=== PATIENT | male | born 1990 | race Caucasian/White ===

== ENCOUNTER 2016-10-21 15:16 | Emergency (ER) | payer OTHER ==
[2016-10-21 16:11] VITALS: BP 155/96
--- NOTE | 2016-10-21 17:11 | UC ---
Lower Extremity/Ankle HPI - HPI Summary HPI Summary: Left heel pain for 2 weeks no injury - History of Current Complaint Chief Complaint: UCLowerExtremity Stated Complaint: ANKLE PAIN Time Seen by Provider: 10/21/16 16:54 Hx Obtained From: Patient Hx From Patient Unobtainable Due To: Dementia Onset/Duration: Sudden Onset, Lasting Weeks - 2, Still Present Severity Initially: Moderate Severity Currently: Moderate Pain Intensity: 6 Pain Scale Used: 0-10 Numeric Aggravating Factor(s): Standing, Ambulation Alleviating Factor(s): Rest, Ice Able to Bear Weight: Yes - Allergies/Home Medications Allergies/Adverse Reactions: Allergies Allergy/AdvReac Type Severity Reaction Status Date / Time Sulfamethoxazole Allergy Unknown Unknown Verified 11/16/12 23:16 w/Trimethoprim Reaction [From Bactrim] Details PMH/Surg Hx/FS Hx/Imm Hx Previously Healthy: No Psychological History: Bipolar Disorder Other History Of: Negative For: Anticoagulant Therapy - Surgical History Surgical History: None - Family History Known Family History: Positive: Cardiac Disease, Hypertension - Social History Occupation: Disabled Lives: With Family Alcohol Use: Occasionally Substance Use Type: None Smoking Status (MU): Never Smoked Tobacco Type: Cigarettes Amount Used/How Often: 0.5 PPD Have You Smoked in the Last Year: No When Did the Patient Quit Smoking/Using Tobacco: greater than 1 year ago - Immunization History Most Recent Influenza Vaccination: in the past Most Recent Tetanus Shot: up to date Most Recent Pneumonia Vaccination: never Review of Systems Constitutional: Negative Skin: Negative Eyes: Negative ENT: Negative Respiratory: Negative Cardiovascular: Negative Gastrointestinal: Negative Genitourinary: Negative Motor: Negative Neurovascular: Negative Musculoskeletal: Myalgia - left achellies area Neurological: Negative Psychological: Negative All Other Systems Reviewed And Are Negative: Yes Physical Exam Triage Information Reviewed: Yes Appearance: Well-Appearing, No Pain Distress, Well-Nourished Vital Signs: Initial Vital Signs Temp 98 F 10/21/16 16:08 Pulse 84 10/21/16 16:08 Resp 18 10/21/16 16:08 BP 155/96 10/21/16 16:08 Pulse Ox 99 10/21/16 16:08 Vital Signs Reviewed: Yes Eye Exam: Normal Eyes: Positive: Conjunctiva Clear ENT Exam: Normal ENT: Positive: Normal ENT inspection, Hearing grossly normal, TMs normal. Negative: Nasal congestion, Nasal drainage, Trismus, Muffled/hoarse voice Dental Exam: Normal Neck exam: Normal Neck: Positive: Supple, Nontender, No Lymphadenopathy Respiratory Exam: Normal Respiratory: Positive: Chest non-tender, Lungs clear, Normal breath sounds, No respiratory distress, No accessory muscle use Cardiovascular Exam: Normal Cardiovascular: Positive: RRR, No Murmur, Pulses Normal, Brisk Capillary Refill Musculoskeletal Exam: Normal Musculoskeletal: Positive: Strength Intact, ROM Intact, No Edema, Other: - Nolasco Squeeze test WNL and equal Bilaterally Neurological Exam: Normal Neurological: Positive: Alert, Muscle Tone Normal Psychological Exam: Normal Skin Exam: Normal Lower Extremity Course/Dx - Course Course Of Treatment: Leland, antinflammatories, shoe inserts, follow with physical therapy - Differential Dx/Diagnosis Differential Diagnosis/HQI/PQRI: Contusion, Fracture (Open), Sprain, Strain, Tendonitis Provider Diagnoses: (l) Achellies tendonitis, High blood pressure with out dx of hypertension Discharge - Discharge Plan Condition: Stable Disposition: HOME Prescriptions: Naproxen Sodium [Naproxen Sodium 500 MG TAB] 500 mg PO BID PRN #30 tab PRN Reason: Pain Patient Education Materials: Achilles Tendinitis (ED), DASH Eating Plan (ED), Hypertension (ED), RICE Therapy (ED) Referrals: Jl Newell MD [Primary Care Provider] - 2 Weeks
== END 2016-10-21 17:29 | disposition home or self-care (01) ==
LOC: UCEAST 15:16
DX: M76.62 Achilles tendinitis, left leg (principal); R03.0 Elevated blood-pressure reading, without diagnosis of hypertension; F31.9 Bipolar disorder, unspecified; Z88.3 Allergy status to other anti-infective agents
CPT/HCPCS: 99212; G0463

== ENCOUNTER 2017-04-04 13:56 | Emergency (ER) | payer MEDICARE, MEDICAID ==
[2017-04-04 14:22] VITALS: BP 153/72
[2017-04-04] MEDS ORDERED: Ibuprofen TAB* 600 MG PO ONE (15:11)
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
--- NOTE | 2017-04-04 15:38 | RAD ---
HISTORY: Left third toe injury COMPARISONS: None VIEWS: 3, Frontal, lateral, and oblique views of the left forefoot FINDINGS: BONE DENSITY: Normal. BONES: There is a nondisplaced fracture of the head of the proximal phalanx of the third digit with articular extension JOINTS: There is no arthropathy. ALIGNMENT: There is no dislocation. SOFT TISSUES: Unremarkable. OTHER FINDINGS: None. IMPRESSION: NONDISPLACED FRACTURE OF THE PROXIMAL PHALANX OF THE THIRD DIGIT
== END 2017-04-04 15:50 | disposition home or self-care (01) ==
LOC: UCEAST 13:56
DX: S92.515A Nondisplaced fracture of proximal phalanx of left lesser toe(s), initial encounter for closed fracture (principal); W22.8XXA Striking against or struck by other objects, initial encounter; Y93.9 Activity, unspecified; Y92.9 Unspecified place or not applicable; Z88.2 Allergy status to sulfonamides; Z87.891 Personal history of nicotine dependence
CPT/HCPCS: 99212; A9270-GY; G0463

== ENCOUNTER 2017-09-28 13:35 | Inpatient (IN) | payer MEDICARE, MEDICAID ==
[2017-09-28 14:57] LABS: ABS Basophils 0 10^3/ul (0-0.2); ABS Eosinophils 0 10^3/ul (0-0.6); ABS Lymphocytes 1.5 10^3/ul (1.0-4.8); ABS Monocytes 0.4 10^3/ul (0-0.8); ABS Neutrophils 5.8 10^3/ul (1.5-7.7); ABS Nucleated RBC 0 10^3/ul; Eosinophil % 0.2 % (0-6); Hematocrit 38 % (42-52); Lymphocyte % 18.9 % (25-47); Mean Corpuscular HGB Conc 34 g/dl (31-36); Mean Corpuscular Hemoglobin 30 pg (27-31); Mean Corpuscular Volume 88 fL (80-94); Mean Platelet Volume 10.3 um3 (7.4-10.4); Nucleated Red Blood Cells % 0; Platelet Count 245 10^3/ul (150-450); Red Blood Count 4.37 10^6/ul (4.0-5.4); Red Cell Distribution Width 13 % (10.5-15); White Blood Count 7.8 10^3/ul (3.5-10.8)
[2017-09-28 15:19] LABS: EGFR Non-African American 106.1 (>60)
[2017-09-28 16:14] LABS: Urine Appearance Clear; Urine Blood Negative (Negative); Urine Color Straw; Urine Ketones Negative (Negative); Urine Protein Negative (Negative); Urine Specific Gravity 1.012 (1.010-1.030); Urine Urobilinogen Negative (Negative)
[2017-09-28] MEDS ORDERED: Estradiol TAB(NF) 2 MG TAB PO ONE (22:19)
[2017-09-28] MEDS ORDERED: PTO: Estradiol TAB(NF) 2 MG TAB PO ONE (22:19)
[2017-09-28] MEDS ORDERED: Spironolactone TAB* 25 MG PO ONE (22:21)
[2017-09-28] MEDS ORDERED: Amoxicillin PO (*) 500 MG CAP PO SCH (23:00)
--- NOTE | 2017-09-28 23:17 | ED ---
Kaylen Cassidy Nilda, scribed for Rahul Bedolla MD on 09/28/17 at 1500 . Psychiatric Complaint - HPI Summary HPI Summary: This patient is a 27 year old M presenting to [facility] accompanied by family with a chief complaint of acute constant SI thoughts though no plan at this time. The patient rates the pain 0/10 in severity. Symptoms aggravated by recent stressors and alleviated by nothing. Patient denies drugs and ETOH today. Pt states OD two nights ago (2 pills of 5mg oxybutynin) and last week (18 pills of 5 mg oxybutynin). - History Of Current Complaint Chief Complaint: EDMentalHealth Time Seen by Provider: 09/28/17 14:35 Hx Obtained From: Patient Onset/Duration: Sudden Onset, Lasting Weeks, Still Present Timing: Constant Character: Depressed Aggravating Factor(s): Recent Stress Alleviating Factor(s): Nothing Related History: Positive For: Prior Psychiatric Issues Has Suicidal: Reports: Thoughts, Has Prior Attempt(s). Denies: With A Plan Ingestion History: Type/Name Of Drug - oxybutynin (18 5mg pills 1 weeks ago and 2 5 mg pills 2 days ago) - Allergies/Home Medications Allergies/Adverse Reactions: Allergies Allergy/AdvReac Type Severity Reaction Status Date / Time sulfamethoxazole Allergy Unknown Verified 09/28/17 13:44 [From Bactrim] Reaction Details trimethoprim [From Bactrim] Allergy Unknown Verified 09/28/17 13:44 Reaction Details Home Medications: Home Medications Estradiol TAB(NF) 2 mg PO BID 09/28/17 [History Confirmed 09/28/17] Spironolactone TAB* [Aldactone TAB*] 50 mg PO QPM 09/28/17 [History Confirmed ] Spironolactone TAB* [Aldactone TAB*] 100 mg PO QAM 09/28/17 [History Confirmed 09/28/17] PMH/Surg Hx/FS Hx/Imm Hx Endocrine/Hematology History: Denies: Hx Anticoagulant Therapy, Hx Diabetes, Hx Thyroid Disease Cardiovascular History: Denies: Hx Hypertension Respiratory History: Denies: Hx Asthma, Hx Chronic Obstructive Pulmonary Disease (COPD) GI History: Denies: Hx Ulcer Neurological History: Reports: Hx Developmental Delay, Hx Headaches, Hx Seizures - as a child Psychiatric History: Reports: Hx Attention Deficit Hyperactivity Disorder, Hx Depression, Hx Bipolar Disorder, Hx of Violent Episodes Against Others - Immunization History Date of Tetanus Vaccine: up to date Date of Influenza Vaccine: none Infectious Disease History: No Infectious Disease History: Denies: Hx Clostridium Difficile, Hx Hepatitis, Hx Human Immunodeficiency Virus (HIV), Hx of Known/Suspected MRSA, Hx Shingles, Hx Tuberculosis, Hx Known/ Suspected VRE, Hx Known/Suspected VRSA, History Other Infectious Disease, Traveled Outside the [place] in Last 30 Days - Family History Known Family History: Positive: Cardiac Disease, Hypertension, Other - thyroid disease - Social History Alcohol Use: Occasionally Substance Use Type: Reports: None Smoking Status (MU): Never Smoked Tobacco Type: Cigarettes Amount Used/How Often: 0.5 PPD Have You Smoked in the Last Year: No Review of Systems Negative: Shortness Of Breath Psychological: Other - SI thoughts, intentional overdose (2 days ago and 1 week ago) Positive: Depressed All Other Systems Reviewed And Are Negative: Yes Physical Exam - Summary Physical Exam Summary: General: well-appearing, no pain distress Skin: warm, color reflects adequate perfusion, dry Head: normal Eyes: EOMI, OMAR ENT: normal Neck: supple, nontender Respiratory: CTA, breath sounds present Cardiovascular: RRR Abdomen: soft, nontender Bowel: present Musculoskeletal: normal, strength/ROM intact Neurological: normal, sensory/motor intact, A&O x3 Psychological: affect/mood appropriate Triage Information Reviewed: Yes Vital Signs On Initial Exam: Initial Vitals Temp Pulse Resp BP Pulse Ox 96.7 F 95 16 144/94 96 09/28/17 13:41 09/28/17 13:41 09/28/17 13:41 09/28/17 13:41 09/28/17 13:41 Vital Signs Reviewed: Yes Diagnostics - Vital Signs Vital Signs Temp Pulse Resp BP Pulse Ox 09/28/17 13:41 96.7 F 95 16 144/94 96 - Laboratory Lab Results: Lab Results 09/28/17 09/28/17 09/28/17 Range/Units 14:47 14:47 15:54 WBC 7.8 (3.5-10.8) 10^3/ul RBC 4.37 (4.0-5.4) 10^6/ul Hgb 13.0 L (14.0-18.0) g/dl Hct 38 L (42-52) % MCV 88 (80-94) fL MCH 30 (27-31) pg MCHC 34 (31-36) g/dl RDW 13 (10.5-15) % Plt Count 245 (150-450) 10^3/ul MPV 10.3 (7.4-10.4) um3 Neut % (Auto) 75.0 (38-83) % Lymph % (Auto) 18.9 L (25-47) % Wilcox % (Auto) 5.3 (0-7) % Eos % (Auto) 0.2 (0-6) % Baso % (Auto) 0.6 (0-2) % Absolute Neuts (auto) 5.8 (1.5-7.7) 10^3/ul Absolute Lymphs (auto) 1.5 (1.0-4.8) 10^3/ul Absolute Monos (auto) 0.4 (0-0.8) 10^3/ul Absolute Eos (auto) 0 (0-0.6) 10^3/ul Absolute Basos (auto) 0 (0-0.2) 10^3/ul Absolute Nucleated RBC 0 10^3/ul Nucleated RBC % 0 Sodium 133 L (139-145) mmol/L Potassium 4.2 (3.5-5.0) mmol/L Chloride 100 L (101-111) mmol/L Carbon Dioxide 26 (22-32) mmol/L Anion Gap 7 (2-11) mmol/L BUN 18 (6-24) mg/dL Creatinine 0.87 (0.67-1.17) mg/dL Est GFR ( Amer) 136.4 (>60) Est GFR (Non-Af Amer) 106.1 (>60) BUN/Creatinine Ratio 20.7 H (8-20) Glucose 91 (70-100) mg/dL Calcium 9.5 (8.6-10.3) mg/dL Total Bilirubin 0.30 (0.2-1.0) mg/dL AST 17 (13-39) U/L ALT 16 (7-52) U/L Alkaline Phosphatase 46 (34-104) U/L Total Protein 7.9 (6.4-8.9) g/dL Albumin 4.5 (3.2-5.2) g/dL Globulin 3.4 (2-4) g/dL Albumin/Globulin Ratio 1.3 (1-3) TSH 0.95 (0.34-5.60) mcIU/mL Urine Color Urine Appearance Urine pH (5-9) Ur Specific Evergreen (1.010-1.030) Urine Protein (Negative) Urine Ketones (Negative) Urine Blood (Negative) Urine Nitrate (Negative) Urine Bilirubin (Negative) Urine Urobilinogen (Negative) Ur Leukocyte Esterase (Negative) Urine Glucose (Negative) Salicylates < 2.50 (<30) mg/dL Urine Opiates Screen None detected (None Detect) Acetaminophen < 15 mcg/mL Ur Barbiturates Screen None detected (None Detect) Ur Phencyclidine Scrn None detected (None Detect) Ur Amphetamines Screen None detected (None Detect) U Benzodiazepines Scrn None detected (None Detect) Urine Cocaine Screen None detected (None Detect) U Cannabinoids Screen None detected (None Detect) Serum Alcohol < 10 (<10) mg/dL 09/28/17 Range/Units 15:55 WBC (3.5-10.8) 10^3/ul RBC (4.0-5.4) 10^6/ul Hgb (14.0-18.0) g/dl Hct (42-52) % MCV (80-94) fL MCH (27-31) pg MCHC (31-36) g/dl RDW (10.5-15) % Plt Count (150-450) 10^3/ul MPV (7.4-10.4) um3 Neut % (Auto) (38-83) % Lymph % (Auto) (25-47) % Wilcox % (Auto) (0-7) % Eos % (Auto) (0-6) % Baso % (Auto) (0-2) % Absolute Neuts (auto) (1.5-7.7) 10^3/ul Absolute Lymphs (auto) (1.0-4.8) 10^3/ul Absolute Monos (auto) (0-0.8) 10^3/ul Absolute Eos (auto) (0-0.6) 10^3/ul Absolute Basos (auto) (0-0.2) 10^3/ul Absolute Nucleated RBC 10^3/ul Nucleated RBC % Sodium (139-145) mmol/L Potassium (3.5-5.0) mmol/L Chloride (101-111) mmol/L Carbon Dioxide (22-32) mmol/L Anion Gap (2-11) mmol/L BUN (6-24) mg/dL Creatinine (0.67-1.17) mg/dL Est GFR ( Amer) (>60) Est GFR (Non-Af Amer) (>60) BUN/Creatinine Ratio (8-20) Glucose (70-100) mg/dL Calcium (8.6-10.3) mg/dL Total Bilirubin (0.2-1.0) mg/dL AST (13-39) U/L ALT (7-52) U/L Alkaline Phosphatase (34-104) U/L Total Protein (6.4-8.9) g/dL Albumin (3.2-5.2) g/dL Globulin (2-4) g/dL Albumin/Globulin Ratio (1-3) TSH (0.34-5.60) mcIU/mL Urine Color Straw Urine Appearance Clear Urine pH 6.0 (5-9) Ur Specific Evergreen 1.012 (1.010-1.030) Urine Protein Negative (Negative) Urine Ketones Negative (Negative) Urine Blood Negative (Negative) Urine Nitrate Negative (Negative) Urine Bilirubin Negative (Negative) Urine Urobilinogen Negative (Negative) Ur Leukocyte Esterase Negative (Negative) Urine Glucose Negative (Negative) Salicylates (<30) mg/dL Urine Opiates Screen (None Detect) Acetaminophen mcg/mL Ur Barbiturates Screen (None Detect) Ur Phencyclidine Scrn (None Detect) Ur Amphetamines Screen (None Detect) U Benzodiazepines Scrn (None Detect) Urine Cocaine Screen (None Detect) U Cannabinoids Screen (None Detect) Serum Alcohol (<10) mg/dL Result Diagrams: 09/28/17 14:47 09/28/17 14:47 Lab Statement: Any lab studies that have been ordered have been reviewed, and results considered in the medical decision making process. Course/Dx - Course Course Of Treatment: 1550 Pt is medically cleared for [facility]HE. Assessment/Plan: Medications reviewed. BP noted and advised to follow up with PCP. - Differential Dx/Clinical Impression Provider Diagnosis: Elevated BP without diagnosis of hypertension, Depression, Mental health problem - Physician Notifications Discussed Care Of Patient With: Khanh Villalba - Psych Time Discussed With Above Provider: 22:36 Instructed by Provider To: Admit As Inpatient Discharge - Sign-Out/Discharge Documenting (check all that apply): Discharge/Admit/Transfer - Discharge Plan Condition: Stable [facility]position[place] [facility] [place] Disposition Comment: pending dispo, awaiting [facility]. Referrals: Gurmeet Chapman NP [Primary Care Provider] - Additional Instructions: Your blood pressure was elevated during todays visit; please follow up with your primary care provider within a week for further evaluation. - Billing Disposition and Condition Condition: STABLE Disposition: [facility] [place] The documentation as recorded by the Kaylen ferrara Nilda accurately reflects the service I personally performed and the decisions made by me, Rahul Bedolla MD.
[2017-09-28] MEDS ORDERED: SPIRONOLACTONE PO ONE (23:45)
[2017-09-28] MEDS: AMOXICILLIN 500 MG PO SCH (23:59)
[2017-09-29] MEDS ORDERED: Acetaminophen TAB* 325 MG PO PRN (05:42)
[2017-09-29] MEDS ORDERED: Al Hydrox/Mg Hydrox/Simet LIQ* 30 ML UDC PO PRN (05:42)
[2017-09-29] MEDS: Spironolactone TAB* 25 MG PO SCH ×2 (08:48→20:32)
[2017-09-29] MEDS: PTO: Estradiol TAB(NF) 2 MG TAB PO SCH ×2 (08:53→21:03)
[2017-09-29] MEDS: AMOXICILLIN 500 MG PO SCH (08:54)
[2017-09-29] MEDS: Vitamin THERAPEUTIC TAB PO SCH (09:00)
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
[2017-09-30] MEDS: Spironolactone TAB* 25 MG PO SCH ×2 (09:21→21:07)
[2017-09-30] MEDS: PTO: Estradiol TAB(NF) 2 MG TAB PO SCH ×2 (09:22→21:05)
[2017-09-30] MEDS: Vitamin THERAPEUTIC TAB PO SCH (09:22)
[2017-09-30] MEDS ORDERED: Aripiprazole Maintena (NF) 300 MG SYRINGE IM SCH (13:00)
--- NOTE | 2017-09-30 14:24 | PN ---
Subjective - Subjective Date of Service: 09/30/17 Service Type: 13004 Hosp care 15 min low complexity Subjective: Deirdre slept much of the day. I have ordered Abilify Maintena 300 mg for her to continue outpatient. She has reportedly done better on a mood stabilizer/ antipsychotic than without. She is agreeable to the injection and is apparently happy to take it today. Objective - Appearance Appearance: Obese Dysmorphic Features: No Hygiene: Normal Grooming: Disheveled - Behavior Psychomotor Activities: Normal Exhibits Abnormal Movement: No - Attitude and Relatedness Attitude and Relatedness: Cooperative - Mood Patient's Decription of Mood: "Okay" - Affect Affect Consistent with: Euthymia - Thought Process Thought Content: No Passive Wish, No Suicidal Planning, No Homicidal Ideation, No Paranoid Ideation - Sensorium Type of Hallucinations: Visual: No, Auditory: No, Command: No - Level of Consciousness Level of Consciousness: Lethargic Orientation: Yes Intact, Yes Orientated to Time, Yes Orientated to Place, Yes Orientated to Person - Impulse Control Impulse Control: Impaired - Insight and Judgement Insight and Judgement: Impaired - Additional Observations Comments: Deirdre is feeling lethargic. Although she participated in morning groups, she napped for some of the afternoon. Assessment - Assessment Merits Inpatient Hospitalization: For Immediate Safety Clinical Impression: Deirdre is a 27-year-old male transitioning to female who chronically feels "suicidal". She has suffered many traumas and has not processed them efficiently. In addition there is a mood component to her presentation. Plan - Plan Treatment Plan: Name: RHETT KHAN Birthdate: 1990 [id number] Continued Medication Management: Different Medication Medications: Current Medications Acetaminophen (Tylenol Tab*) 650 mg PO Q4H PRN PRN Reason: PAIN or TEMP > 101 F Al Hydrox/Mg Hydrox/Simethicone (Maalox Plus*) 30 ml PO Q4H PRN PRN Reason: INDIGESTION Aripiprazole (Abilify Maintena (Nf)) 300 mg IM Q28D [facility] Estradiol (Estradiol Tab(Nf)) 2 mg PO BID [facility] Last Admin: 09/30/17 09:22 Dose: 2 mg Multivitamins (Theragran Tab*) 1 tab PO DAILY [facility] Last Admin: 05/09/18 09:22 Dose: 1 tab Spironolactone (Aldactone Tab*) 50 mg PO BEDTIME [facility] Last Admin: 09/29/17 20:32 Dose: 50 mg Spironolactone (Aldactone Tab*) 100 mg PO DAILY [facility] Last Admin: 09/30/17 09:21 Dose: 100 mg - Discharge Plan Discharge Plan: Outpatient Follow Up Outpatient Program: [facility] Additional Comments: We will inject Deirdre with Abilify Maintena 300 mg today and plan to discharge her tomorrow.
[2017-10-01 08:11] VITALS: BP 125/76
[2017-10-01] MEDS: PTO: Estradiol TAB(NF) 2 MG TAB PO SCH (09:45)
[2017-10-01] MEDS: Spironolactone TAB* 25 MG PO SCH (09:45)
[2017-10-01] MEDS: Vitamin THERAPEUTIC TAB PO SCH (09:45)
--- NOTE | 2017-10-01 11:30 | PN ---
MHU: Group Therapy Note - Service Type Service Type: 89019 Group Psychotherapy - Cognitive Behavioral Group Therapy ( CBT):Patient was attentive and participatory in CBT programming this morning, and remained in good behavioral control. Patient expressed positive insights regarding relevant treatment interventions and goals.
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
== END 2017-10-01 16:40 | disposition home or self-care (01) | DRG 881 ==
LOC: ED 13:35 → BSU 09-29 00:35
PROVIDERS: ADMIT Psychiatry & Neurology Psychiatry; ATTEND Psychiatry & Neurology Psychiatry
PROC: GZHZZZZ Group Psychotherapy (ICD-10-PCS; principal; 2017-10-01)
DX: F32.9 Major depressive disorder, single episode, unspecified (principal); F90.9 Attention-deficit hyperactivity disorder, unspecified type; Z62.810 Personal history of physical and sexual abuse in childhood; J45.909 Unspecified asthma, uncomplicated; R62.50 Unspecified lack of expected normal physiological development in childhood; F64.9 Gender identity disorder, unspecified; T44.3X2A Poisoning by other parasympatholytics [anticholinergics and antimuscarinics] and spasmolytics, intentional self-harm, initial encounter; Y92.009 Unspecified place in unspecified non-institutional (private) residence as the place of occurrence of the external cause; Z88.3 Allergy status to other anti-infective agents; Z82.49 Family history of ischemic heart disease and other diseases of the circulatory system; Z72.89 Other problems related to lifestyle
CPT/HCPCS: 36415; 80053; 80061; 80307; 80320; 80329; 81003; 83036; 84443; 85025; 90853; 99222; 99231; 99238; 99285; A9270-GY; G0480

== ENCOUNTER 2017-11-04 16:41 | Emergency (ER) | payer MEDICARE, MEDICAID ==
[2017-11-04 17:26] LABS: ABS Basophils 0.1 10^3/ul (0-0.2); ABS Eosinophils 0 10^3/ul (0-0.6); ABS Lymphocytes 1.5 10^3/ul (1.0-4.8); ABS Monocytes 0.4 10^3/ul (0-0.8); ABS Neutrophils 9.3 10^3/ul (1.5-7.7); ABS Nucleated RBC 0 10^3/ul; Eosinophil % 0.1 % (0-6); Hematocrit 38 % (42-52); Hemoglobin 12.6 g/dl (14.0-18.0); Lymphocyte % 12.9 % (25-47); Mean Corpuscular HGB Conc 33 g/dl (31-36); Mean Corpuscular Hemoglobin 29 pg (27-31); Mean Corpuscular Volume 89 fL (80-94); Nucleated Red Blood Cells % 0; Platelet Count 225 10^3/ul (150-450); Red Cell Distribution Width 14 % (10.5-15); White Blood Count 11.3 10^3/ul (3.5-10.8)
[2017-11-04 17:30] LABS: Urine Appearance Clear; Urine Blood Negative (Negative); Urine Color Yellow; Urine Ketones Negative (Negative); Urine Protein Negative (Negative); Urine Specific Gravity 1.025 (1.010-1.030); Urine Urobilinogen Negative (Negative)
--- NOTE | 2017-11-04 19:17 | ED ---
Jeanna Cassidy Tenzin, scribed for Rahul Bedolla MD on 11/04/17 at 1751 . Psychiatric Complaint - HPI Summary HPI Summary: Pt is a 27 years old male presenting to the ED with complaints of depression and SI. Pt is currently taking transgender medication and is also on lithium. Pt denies fever, chills, CP or SOB. No Aggravating and alleviating factors were noted. - History Of Current Complaint Chief Complaint: EDMentalHealth Time Seen by Provider: 11/04/17 16:56 Hx Obtained From: Patient Character: Depressed Aggravating Factor(s): Nothing Alleviating Factor(s): Nothing - Allergies/Home Medications Allergies/Adverse Reactions: Allergies Allergy/AdvReac Type Severity Reaction Status Date / Time sulfamethoxazole Allergy Unknown Verified 09/28/17 13:44 [From Bactrim] Reaction Details trimethoprim [From Bactrim] Allergy Unknown Verified 09/28/17 13:44 Reaction Details Home Medications: Home Medications Acetaminophen TAB* [Tylenol TAB*] 650 mg PO Q4H PRN 11/04/17 [History Confirmed 11/04/17] Estradiol TAB(NF) 2 mg PO BID 11/04/17 [History Confirmed 11/04/17] [place] Carbonate ER TAB* 600 mg PO BEDTIME 11/04/17 [History Confirmed 11/04/17 ] PMH/Surg Hx/FS Hx/Imm Hx Endocrine/Hematology History: Reports: Hx Anemia Denies: Hx Anticoagulant Therapy, Hx Diabetes, Hx Thyroid Disease Cardiovascular History: Reports: Hx Hypertension Respiratory History: Reports: Hx Asthma - Exercise induced Denies: Hx Chronic Obstructive Pulmonary Disease (COPD) GI History: Reports: Other GI Disorders - Pt reports being tested for constipation 2 months ago Denies: Hx Ulcer Musculoskeletal History: Reports: Hx Arthritis Sensory History: Reports: Hx Contacts or Glasses Denies: Hx Hearing Aid Opthamlomology History: Reports: Hx Contacts or Glasses Neurological History: Reports: Hx Developmental Delay, Hx Headaches, Hx Seizures - as a child, Other Neuro Impairments/Disorders - 11 concussions Psychiatric History: Reports: Hx Attention Deficit Hyperactivity Disorder, Hx Depression, Hx Inpatient Treatment, Hx Community Mental Health Tx, Hx Bipolar Disorder, Hx Suicide Attempt, Hx of Violent Episodes Against Others - Immunization History Date of Tetanus Vaccine: up to date Date of Influenza Vaccine: none Infectious Disease History: No Infectious Disease History: Denies: Hx Clostridium Difficile, Hx Hepatitis, Hx Human Immunodeficiency Virus (HIV), Hx of Known/Suspected MRSA, Hx Shingles, Hx Tuberculosis, Hx Known/ Suspected VRE, Hx Known/Suspected VRSA, History Other Infectious Disease, Traveled Outside the [place] in Last 30 Days - Family History Known Family History: Positive: Cardiac Disease, Hypertension, Other - thyroid disease - Social History Alcohol Use: Occasionally Substance Use Type: Reports: None Smoking Status (MU): Former Smoker Type: Cigarettes Amount Used/How Often: 0.5 PPD Have You Smoked in the Last Year: No Review of Systems Negative: Fever, Chills Negative: Chest Pain Negative: Shortness Of Breath All Other Systems Reviewed And Are Negative: Yes Physical Exam - Summary Physical Exam Summary: General: well-appearing, no pain distress Skin: warm, color reflects adequate perfusion, dry Head: normal Eyes: EOMI, OMAR ENT: normal Neck: supple, nontender Respiratory: CTA, breath sounds present Cardiovascular: RRR Abdomen: soft, nontender Bowel: present Musculoskeletal: normal, strength/ROM intact Neurological: sensory/motor intact, A&O x3 Psychological: affect/mood appropriate Triage Information Reviewed: Yes Vital Signs On Initial Exam: Initial Vitals Temp Pulse Resp BP Pulse Ox 99.5 F 70 18 151/97 99 11/04/17 16:47 11/04/17 16:47 11/04/17 16:47 11/04/17 16:47 11/04/17 16:47 Vital Signs Reviewed: Yes Diagnostics - Vital Signs Vital Signs Temp Pulse Resp BP Pulse Ox 11/04/17 16:47 99.5 F 70 18 151/97 99 - Laboratory Lab Results: Lab Results 11/04/17 11/04/17 Range/Units 17:12 17:19 WBC 11.3 H (3.5-10.8) 10^3/ul RBC 4.30 (4.00-5.40) 10^6/ul Hgb 12.6 L (14.0-18.0) g/dl Hct 38 L (42-52) % MCV 89 (80-94) fL MCH 29 (27-31) pg MCHC 33 (31-36) g/dl RDW 14 (10.5-15) % Plt Count 225 (150-450) 10^3/ul MPV 10.0 (7.4-10.4) um3 Neut % (Auto) 82.5 (38-83) % Lymph % (Auto) 12.9 L (25-47) % [place] % (Auto) 3.8 (0-7) % Eos % (Auto) 0.1 (0-6) % Baso % (Auto) 0.7 (0-2) % Absolute Neuts (auto) 9.3 H (1.5-7.7) 10^3/ul Absolute Lymphs (auto) 1.5 (1.0-4.8) 10^3/ul Absolute Monos (auto) 0.4 (0-0.8) 10^3/ul Absolute Eos (auto) 0 (0-0.6) 10^3/ul Absolute Basos (auto) 0.1 (0-0.2) 10^3/ul Absolute Nucleated RBC 0 10^3/ul Nucleated RBC % 0 Urine Color Yellow Urine Appearance Clear Urine pH 5.0 (5-9) Ur Specific [place] 1.025 (1.010-1.030) Urine Protein Negative (Negative) Urine Ketones Negative (Negative) Urine Blood Negative (Negative) Urine Nitrate Negative (Negative) Urine Bilirubin Negative (Negative) Urine Urobilinogen Negative (Negative) Ur Leukocyte Esterase Negative (Negative) Urine Glucose Negative (Negative) Urine Ascorbic Acid * A (Negative) Result Diagrams: 11/04/17 17:12 11/04/17 17:12 Lab Statement: Any lab studies that have been ordered have been reviewed, and results considered in the medical decision making process. Course/Dx - Course Course Of Treatment: MHE AND DISPOSITION PENDING AT SHIFT CHANGE - Differential Dx/Clinical Impression Provider Diagnosis: Mental health problem Discharge - Sign-Out/Discharge Documenting (check all that apply): Sign-Out Patient Signing out patient TO: Joshua Mendez - awaiting MHE. - Discharge Plan Condition: Stable [facility] [place] Gurmeet Chapman NP [Primary Care Provider] - - Billing Disposition and Condition Condition: STABLE Disposition: Psychiatric Facility [facility] [place] The documentation as recorded by the Jeanna ferrara Tenzin accurately reflects the service I personally performed and the decisions made by , Rahul Bedolla MD.
[2017-11-04 21:03] VITALS: BP 150/85
--- NOTE | 2017-11-04 21:09 | ED ---
Tiki Cassidy Elizabeth, hilda for Joshua Mendez MD on 11/04/17 at 2043 . Progress - Progress Note Progress Note: The patient was signed out from Dr. Bedolla to Dr. Mendez upon shift change pending mental health evaluation. At 20:36 the mental health evaluation was relayed to Dr. Mendez. Dr. Villalba recommended discharging the patient into the care of his grandmother, who can keep him safe until his appointment with [facility] on 11/09/17. - Consult/PCP Time Called: 19:00 Course/Dx - Course Course Of Treatment: At 20:36 the mental health evaluation was relayed to Dr. Mendez. Dr. Villalba recommended discharging the patient into the care of his grandmother, who can keep him safe until his appointment with [facility] on 11/09/17. Patient will be discharged home with diagnosis of depression. - Diagnoses Provider Diagnoses: Depression - Provider Notifications Discussed Care Of Patient With: Khanh Villalba Time Discussed With Above Provider: 20:36 Instructed by Provider To: Other - discharge patient home in care of his grandmother Discharge - Sign-Out/Discharge Documenting (check all that apply): Discharge/Admit/Transfer - Discharge Plan Condition: Stable Disposition: HOME Patient Education Materials: Depression (ED), Suicide Prevention for Adults (ED ) Referrals: Gurmeet Chapman, MARINA PORTER [Primary Care Provider] - [facility] [Outside] - 5 Days (Patient has an appointment on 11/09/17.) The documentation as recorded by the Tiki ferrara Elizabeth accurately reflects the service I personally performed and the decisions made by Andrea hamilton Abdul, MD.
== END 2017-11-04 21:28 | disposition home or self-care (01) ==
LOC: ED 16:41
DX: Z88.5 Allergy status to narcotic agent (principal); Z87.891 Personal history of nicotine dependence; F32.9 Major depressive disorder, single episode, unspecified
CPT/HCPCS: 36415; 80053; 80178; 80307; 80320; 80329; 81003; 84443; 85025; 86703; 99284; G0480

== ENCOUNTER 2017-12-16 22:16 | Emergency (ER) | payer MEDICARE, MEDICAID ==
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
[2017-12-16 23:32] LABS: ABS Basophils 0 10^3/ul (0-0.2); ABS Eosinophils 0 10^3/ul (0-0.6); ABS Lymphocytes 1.7 10^3/ul (1.0-4.8); ABS Monocytes 0.5 10^3/ul (0-0.8); ABS Neutrophils 5.2 10^3/ul (1.5-7.7); ABS Nucleated RBC 0 10^3/ul; Eosinophil % 0.4 % (0-6); Hematocrit 36 % (42-52); Hemoglobin 12.4 g/dl (14.0-18.0); Lymphocyte % 23.2 % (25-47); Mean Corpuscular HGB Conc 34 g/dl (31-36); Mean Corpuscular Hemoglobin 30 pg (27-31); Mean Corpuscular Volume 87 fL (80-94); Mean Platelet Volume 9.9 um3 (7.4-10.4); Nucleated Red Blood Cells % 0; Platelet Count 227 10^3/ul (150-450); Red Blood Count 4.18 10^6/ul (4.00-5.40); Red Cell Distribution Width 13 % (10.5-15); White Blood Count 7.5 10^3/ul (3.5-10.8)
[2017-12-16 23:48] LABS: Urine Appearance Cloudy; Urine Blood Negative (Negative); Urine Color Yellow; Urine Ketones Trace (Negative); Urine Protein 1+(30 mg/dL) (Negative); Urine Red Blood Cell Trace(0-2/hpf) (Absent); Urine Specific Gravity 1.028 (1.010-1.030); Urine Urobilinogen Negative (Negative); Urine White Blood Cell Trace(0-5/hpf) (Absent)
[2017-12-16 23:51] LABS: EGFR Non-African American 110.5 (>60)
--- NOTE | 2017-12-17 07:19 | ED ---
Progress - Progress Note Progress Note: Pt signed out from Dr. WEBER pending MHE. This is scribe Ed Sherine documenting for attending Johnathon Neri MD. Course/Dx - Course Course Of Treatment: A 27-year-old M presents to the ED with a CC of depression. (+) SIB. (-) med compliance. PMHx mental health admissions, suicide attempt. - Diagnoses Provider Diagnoses: Depression Discharge - Discharge Plan Referrals: Gurmeet Chapman NP [Primary Care Provider] -
--- NOTE | 2017-12-17 08:45 | PN ---
ED Flex Patient Progress Note Date of Service: 12/16/17 Subjective: This is a 27 year-old M who is pending admission to [facility] Unit / transfer to another psychiatric facility / discharge to home / or being observed secondary to SI. Pt. examined in room 6 at 0845. He is resting comfortably. No complaints. Objective: Vitals: Most recent vital signs documented below. General NAD. Laboratory: Current laboratory results documented below. Assessment: Pending MHE. Plan: Pending psychiatric or medical consultation to observe / transfer / admit / discharge will follow up daily . Vital Signs Temp Pulse Resp BP Pulse Ox 97.9 F 90 18 120/90 98 12/17/17 08:24 12/17/17 08:24 12/17/17 08:24 12/17/17 08:24 12/17/17 08:24 Lab Results - Entire Visit 12/16/17 12/16/17 12/16/17 23:33 23:33 23:23 WBC RBC Hgb Hct MCV MCH MCHC RDW Plt Count MPV Neut % (Auto) Lymph % (Auto) [place] % (Auto) Eos % (Auto) Baso % (Auto) Absolute Neuts (auto) Absolute Lymphs (auto) Absolute Monos (auto) Absolute Eos (auto) Absolute Basos (auto) Absolute Nucleated RBC Nucleated RBC % Sodium 138 Potassium 3.7 Chloride 106 Carbon Dioxide 25 Anion Gap 7 BUN 18 Creatinine 0.84 Est GFR ( Amer) 133.6 Est GFR (Non-Af Amer) 110.5 BUN/Creatinine Ratio 21.4 H Glucose 97 Calcium 9.0 Total Bilirubin 0.20 AST 15 ALT 19 Alkaline Phosphatase 53 Total Protein 7.3 Albumin 4.2 Globulin 3.1 Albumin/Globulin Ratio 1.4 TSH 0.98 Urine Color Yellow Urine Appearance Cloudy Urine pH 6.0 Ur Specific [place] 1.028 Urine Protein 1+(30 mg/dl) A Urine Ketones Trace A Urine Blood Negative Urine Nitrate Negative Urine Bilirubin Negative Urine Urobilinogen Negative Ur Leukocyte Esterase Negative Urine WBC (Auto) Trace(0-5/hpf) Urine RBC (Auto) Trace(0-2/hpf) Ur Squamous Epith Cells Present A Urine Bacteria Absent Hyaline Casts Present A Urine Glucose Negative Salicylates < 2.50 Urine Opiates Screen None detected Acetaminophen < 15 Ur Barbiturates Screen None detected Ur Phencyclidine Scrn None detected Ur Amphetamines Screen None detected U Benzodiazepines Scrn None detected Urine Cocaine Screen None detected U Cannabinoids Screen None detected Serum Alcohol < 10 12/16/17 23:23 WBC 7.5 RBC 4.18 Hgb 12.4 L Hct 36 L MCV 87 MCH 30 MCHC 34 RDW 13 Plt Count 227 MPV 9.9 Neut % (Auto) 69.9 Lymph % (Auto) 23.2 L [place] % (Auto) 6.1 Eos % (Auto) 0.4 Baso % (Auto) 0.4 Absolute Neuts (auto) 5.2 Absolute Lymphs (auto) 1.7 Absolute Monos (auto) 0.5 Absolute Eos (auto) 0 Absolute Basos (auto) 0 Absolute Nucleated RBC 0 Nucleated RBC % 0 Sodium Potassium Chloride Carbon Dioxide Anion Gap BUN Creatinine Est GFR ( Amer) Est GFR (Non-Af Amer) BUN/Creatinine Ratio Glucose Calcium Total Bilirubin AST ALT Alkaline Phosphatase Total Protein Albumin Globulin Albumin/Globulin Ratio TSH Urine Color Urine Appearance Urine pH Ur Specific [place] Urine Protein Urine Ketones Urine Blood Urine Nitrate Urine Bilirubin Urine Urobilinogen Ur Leukocyte Esterase Urine WBC (Auto) Urine RBC (Auto) Ur Squamous Epith Cells Urine Bacteria Hyaline Casts Urine Glucose Salicylates Urine Opiates Screen Acetaminophen Ur Barbiturates Screen Ur Phencyclidine Scrn Ur Amphetamines Screen U Benzodiazepines Scrn Urine Cocaine Screen U Cannabinoids Screen Serum Alcohol
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
[2017-12-17 23:00] VITALS: BP 115/72
--- NOTE | 2017-12-19 06:53 | PN ---
Progress Note - Progress Note Date of Service: 12/19/17 Note: Urine culture grew enterococcus faecalis 1 through 10,000. not significant culture so will not treat.
== END 2017-12-18 00:15 | disposition home or self-care (01) ==
LOC: ED 22:16
DX: F32.9 Major depressive disorder, single episode, unspecified (principal); Z87.891 Personal history of nicotine dependence
CPT/HCPCS: 36415; 80053; 80307; 80320; 80329; 81003; 81015; 84443; 85025; 87077; 87086; 87186; 93005; 99285; G0480

== ENCOUNTER 2018-02-03 14:04 | Emergency (ER) | payer MEDICARE, MEDICAID ==
[2018-02-03 15:35] LABS: ABS Basophils 0 10^3/ul (0-0.2); ABS Eosinophils 0.1 10^3/ul (0-0.6); ABS Lymphocytes 1.2 10^3/ul (1.0-4.8); ABS Monocytes 0.4 10^3/ul (0-0.8); ABS Neutrophils 6.7 10^3/ul (1.5-7.7); ABS Nucleated RBC 0 10^3/ul; Eosinophil % 0.7 % (0-6); Hematocrit 37 % (42-52); Hemoglobin 12.4 g/dl (14.0-18.0); Lymphocyte % 14.3 % (25-47); Mean Corpuscular HGB Conc 34 g/dl (31-36); Mean Corpuscular Hemoglobin 30 pg (27-31); Mean Corpuscular Volume 87 fL (80-94); Mean Platelet Volume 10.1 um3 (7.4-10.4); Nucleated Red Blood Cells % 0; Platelet Count 241 10^3/ul (150-450); Red Blood Count 4.18 10^6/ul (4.00-5.40); Red Cell Distribution Width 13 % (10.5-15); White Blood Count 8.5 10^3/ul (3.5-10.8)
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
[2018-02-03 16:11] LABS: EGFR Non-African American 114.3 (>60)
[2018-02-03 16:17] LABS: Lithium 0.92 mmol/L (0.6-1.2)
[2018-02-03 16:25] LABS: Urine Appearance Clear; Urine Blood Negative (Negative); Urine Color Yellow; Urine Ketones Negative (Negative); Urine Protein 1+(30 mg/dL) (Negative); Urine Red Blood Cell Absent (Absent); Urine Specific Gravity 1.026 (1.010-1.030); Urine Urobilinogen Negative (Negative); Urine White Blood Cell 1+(6-10/hpf) (Absent)
--- NOTE | 2018-02-03 22:27 | ED ---
Progress - Consult/PCP Time Called: 20:17 Course/Dx - Course Course Of Treatment: MEDICALLY CLEARED KIDNEY FUNCTION NORMAL AND LITHIUM LEVEL DECLINING. MHE PENDING AT SHIFT CHANGE. - Diagnoses Provider Diagnoses: [place] overdose, Mental health problem, Depression Discharge - Sign-Out/Discharge Documenting (check all that apply): Patient Departure, Receiving Sign-Out Signing out patient TO: Homero Patrick Receiving patient FROM: Rahul Bedolla - Discharge Plan Condition: Good Disposition: [place] [place] [place] Referrals: [facility] [Outside] - As Soon As Possible (Call therapist to schedule another appointment.) Gurmeet Chapman NP [Primary Care Provider] - - Billing Disposition and Condition Condition: GOOD Disposition: Psychiatric Facility [facility] [place]
--- NOTE | 2018-02-03 22:35 | ED ---
Progress - Progress Note Progress Note: The patient is a sign-out from Dr. Rahul Bedolla MD, at 22:00 pending MHE. At 22:28, mental health recreation manager Mercy Rice, who gave us a brief history of the pt which including the pt's recent overdose on lithium, symptoms of hematuria, transgender medication, and a mental health intellectual disability. The pt currently denies SI and HI. The pt's grandmother thinks that hospitalization would not be beneficial to the pt so Dr. Villalba will discharge the pt home with her grandmother. The pt attends [facility] twice a week. Pt and grandmother agree with this plan. - Consult/PCP Time Called: 20:17 Course/Dx - Course Course Of Treatment: MEDICALLY CLEARED KIDNEY FUNCTION NORMAL AND LITHIUM LEVEL DECLINING. MHE PENDING AT SHIFT CHANGE. - Diagnoses Provider Diagnoses: [place] overdose, Mental health problem, Depression Discharge - Sign-Out/Discharge Documenting (check all that apply): Patient Departure - Patient will be discharged home with grandmother. - Discharge Plan Condition: Good Disposition: HOME Referrals: [facility] [Outside] - As Soon As Possible (Call therapist to schedule another appointment.) Gurmeet Chapman, HAIR WEAVER [Primary Care Provider] - - Billing Disposition and Condition Condition: GOOD Disposition: Home - Attestation Statements Document Initiated by Matilda: Yes Documenting Scribe: Es Romero Provider For Whom Matilda is Documenting (Include Credential): Dr. Homero Patrick MD Scribe Attestation: Es Cassidy scribed for Dr. Homero Patrick MD on 02/03/18 at 2237. Scribe Documentation Reviewed: Yes Provider Attestation: The documentation as recorded by the Es ferrara accurately reflects the service I personally performed and the decisions made by me, Dr. Homero Patrick MD
[2018-02-03 23:11] VITALS: BP 122/71
== END 2018-02-03 23:10 | disposition home or self-care (01) ==
LOC: ED 14:04
DX: T56.891A Toxic effect of other metals, accidental (unintentional), initial encounter (principal); F32.9 Major depressive disorder, single episode, unspecified; Y92.9 Unspecified place or not applicable; Z00.8 Encounter for other general examination; I10 Essential (primary) hypertension; Z87.891 Personal history of nicotine dependence
CPT/HCPCS: 36415; 80053; 80178; 80307; 80320; 80329; 81003; 81015; 84443; 85025; 87086; 93005; 99285; G0480